=== PATIENT | male | born 1975 | race Caucasian/White ===

== ENCOUNTER 2017-01-20 00:19 | Emergency (ER) | payer MEDICARE, MEDICAID ==
[~2017-01-20] VITALS: Ht 190.5 cm; Wt 116.4 kg
[~2017-01-20 00:19] MED LIST: DIAZ5TAB PO; GABA600T PO; HYDR25TA11 PO; OXYC-229 PO; OXYM30TA8 PO; SERT50TA PO
[2017-01-20 00:20] VITALS: BP 133/85
[2017-01-20] MEDS ORDERED: MECLIZINE CHEWABLE 25 MG TAB ONE (02:11)
[2017-01-20] MEDS ORDERED: HYDROmorphone 1 MG/ML, 1ML ONE (02:11)
[2017-01-20] MEDS ORDERED: HYDROmorphone 1 MG/ML, 1ML IM ONE (02:30)
[2017-01-20] MEDS ORDERED: MECLIZINE CHEWABLE 25 MG TAB PO ONE (02:30)
== END 2017-01-20 03:18 | disposition home or self-care (01) ==
LOC: ED 02:31
DX: M54.2 Cervicalgia (principal); R42 Dizziness and giddiness; G89.29 Other chronic pain; J44.9 Chronic obstructive pulmonary disease, unspecified; E78.00 Pure hypercholesterolemia, unspecified; F17.200 Nicotine dependence, unspecified, uncomplicated; Z88.6 Allergy status to analgesic agent; Z88.8 Allergy status to other drugs, medicaments and biological substances
CPT/HCPCS: 72050; 96372; 99284; J1170

== ENCOUNTER 2017-04-09 09:13 | Emergency (ER) | payer MEDICARE, MEDICAID ==
[~2017-04-09] VITALS: Ht 190.5 cm; Wt 111.6 kg
[2017-04-09 09:16] VITALS: BP 159/97
[2017-04-09] MEDS ORDERED: HYDROmorphone 1 MG/ML, 1ML ONE (09:41)
[2017-04-09] MEDS ORDERED: HYDROmorphone 1 MG/ML, 1ML IM ONE (10:00)
== END 2017-04-09 10:30 | disposition home or self-care (01) ==
LOC: ED 10:16
DX: S83.91XA Sprain of unspecified site of right knee, initial encounter (principal); W01.0XXA Fall on same level from slipping, tripping and stumbling without subsequent striking against object, initial encounter; Y93.89 Activity, other specified; Y92.89 Other specified places as the place of occurrence of the external cause; Y99.8 Other external cause status
CPT/HCPCS: 73564; 96372; 99284; J1170

== ENCOUNTER 2017-05-06 22:26 | Emergency (ER) | payer MEDICARE, MEDICAID ==
[~2017-05-06] VITALS: Ht 190.5 cm; Wt 110.3 kg
[~2017-05-06 22:26] MED LIST changes: +OXCA150T PO
[2017-05-06 22:28] VITALS: BP 162/98
[2017-05-07] MEDS ORDERED: OXYC-229 PO (09:11)
== END 2017-05-07 | disposition left against medical advice (07) ==
LOC: ED 23:43
DX: R42 Dizziness and giddiness (principal); R51 Headache; M54.9 Dorsalgia, unspecified; Z53.21 Procedure and treatment not carried out due to patient leaving prior to being seen by health care provider

== ENCOUNTER 2017-05-19 09:49 | Emergency (ER) | payer MEDICARE, MEDICAID ==
[~2017-05-19] VITALS: Ht 188 cm; Wt 113.5 kg
[~2017-05-19 09:49] MED LIST changes: -OXYC-229 PO; +OXYC-307 PO
[2017-05-19 09:50] VITALS: BP 150/95
[2017-05-19] MEDS ORDERED: DIAZEPAM 5 MG TABLET ONE (10:28)
[2017-05-19] MEDS ORDERED: OXYcodone/APAP 10/325MG TABLET ONE (10:29)
[2017-05-19] MEDS ORDERED: DIAZEPAM 5 MG TABLET PO ONE (10:30)
[2017-05-19] MEDS ORDERED: OXYcodone/APAP 10/325MG TABLET PO ONE (10:30)
== END 2017-05-19 11:29 | disposition home or self-care (01) ==
LOC: ED 09:57
DX: M48.02 Spinal stenosis, cervical region (principal); F32.9 Major depressive disorder, single episode, unspecified; F17.210 Nicotine dependence, cigarettes, uncomplicated; M54.12 Radiculopathy, cervical region
CPT/HCPCS: 72050; 99283

== ENCOUNTER 2017-06-05 08:06 | Emergency (ER) | payer MEDICARE, MEDICAID ==
[~2017-06-05] VITALS: Ht 188 cm; Wt 111.6 kg
[2017-06-05 08:08] VITALS: BP 149/93
== END 2017-06-05 08:53 | disposition home or self-care (01) ==
LOC: ED 08:46
DX: K02.9 Dental caries, unspecified (principal); J44.9 Chronic obstructive pulmonary disease, unspecified; I10 Essential (primary) hypertension; E78.00 Pure hypercholesterolemia, unspecified; F17.210 Nicotine dependence, cigarettes, uncomplicated; F32.9 Major depressive disorder, single episode, unspecified; F43.10 Post-traumatic stress disorder, unspecified; G89.29 Other chronic pain; M54.9 Dorsalgia, unspecified
CPT/HCPCS: 99283

== ENCOUNTER 2017-09-15 18:35 | Emergency (ER) | payer MEDICARE, MEDICAID ==
[~2017-09-15] VITALS: Ht 190.5 cm; Wt 113.6 kg
[2017-09-15 18:37] VITALS: BP 147/102
[2017-09-15] MEDS ORDERED: HYDROcodone/APAP 5/325 TABLET PO ONE (19:30)
[2017-09-15] MEDS ORDERED: HYDROcodone/APAP 5/325 TABLET ONE (19:52)
[2017-09-15] MEDS ORDERED: KETOROLAC 30 MG/1 ML ONE (19:52)
[2017-09-15] MEDS: KETOROLAC 30 MG/1 ML IM ONE ×2 (19:53→19:55)
== END 2017-09-15 20:25 | disposition home or self-care (01) ==
LOC: ED 20:10
DX: S46.012A Strain of muscle(s) and tendon(s) of the rotator cuff of left shoulder, initial encounter (principal); G89.11 Acute pain due to trauma; E78.00 Pure hypercholesterolemia, unspecified; I10 Essential (primary) hypertension; J44.9 Chronic obstructive pulmonary disease, unspecified; F43.10 Post-traumatic stress disorder, unspecified; G62.9 Polyneuropathy, unspecified; G89.29 Other chronic pain; X58.XXXA Exposure to other specified factors, initial encounter; Y93.89 Activity, other specified; Y92.89 Other specified places as the place of occurrence of the external cause; Y99.8 Other external cause status
CPT/HCPCS: 99284; J1885

== ENCOUNTER 2017-09-23 00:40 | Emergency (ER) | payer MEDICARE, MEDICAID ==
[~2017-09-23] VITALS: Ht 193 cm; Wt 118.0 kg
[2017-09-23] MEDS ORDERED: OXYcodone/APAP 10/325MG TABLET ONE (02:52)
[2017-09-23] MEDS ORDERED: OXYcodone/APAP 10/325MG TABLET PO ONE (03:00)
[2017-09-23 03:22] VITALS: BP 149/88
== END 2017-09-23 03:24 | disposition home or self-care (01) ==
LOC: ED 03:18
DX: S44.02XA Injury of ulnar nerve at upper arm level, left arm, initial encounter (principal); Z88.8 Allergy status to other drugs, medicaments and biological substances; X58.XXXA Exposure to other specified factors, initial encounter; Y93.9 Activity, unspecified; Y92.098 Other place in other non-institutional residence as the place of occurrence of the external cause; Y99.8 Other external cause status
CPT/HCPCS: 99282

== ENCOUNTER → 2017-09-29 | Outpatient (CLI) | payer MEDICARE, MEDICAID ==
[~2017-09-29] MED LIST changes: +FENTANYL PF 100 MCG/2ML ONE; +FLUMAZENIL 0.1 MG/1 ML, 5ML ONE; +MIDAZOLAM 1 MG/ML, 5ML ONE; +NALOXONE 1 MG/ML, 2ML ONE
== END ==
LOC: RAD 06:51
PROVIDERS: ATTEND Physician Assistant
DX: M62.512 Muscle wasting and atrophy, not elsewhere classified, left shoulder (principal)
CPT/HCPCS: 73221; 99156; J2250; J3010; J2310

== ENCOUNTER 2017-11-21 13:11 | Emergency (ER) | payer MEDICARE, MEDICAID ==
[~2017-11-21] VITALS: Ht 190.5 cm; Wt 117.1 kg
[~2017-11-21 13:11] MED LIST changes: +ALBU18HF INH; -FENTANYL PF 100 MCG/2ML ONE; -FLUMAZENIL 0.1 MG/1 ML, 5ML ONE; -MIDAZOLAM 1 MG/ML, 5ML ONE; +MORP-52 PO; -NALOXONE 1 MG/ML, 2ML ONE
[2017-11-21 13:14] VITALS: BP 161/99
[2017-11-21] MEDS ORDERED: SILVER SULF. CRM 1% , 25GM TP ONE (14:00)
[2017-11-21] MEDS ORDERED: SILVER SULF. CRM 1% , 25GM ONE (14:20)
[2017-11-21] MEDS ORDERED: HYDROcodone/APAP 5/325 TABLET ONE (14:21)
[2017-11-21] MEDS ORDERED: DIPH,PERTUSS(ACELL),TET VAC/PF 0.5 ML IM-VACC ONE ×2 (14:21→14:30)
[2017-11-21] MEDS ORDERED: OXYcodone/APAP 5/325MG TABLET PO ONE (14:30)
[2017-11-21] MEDS ORDERED: HYDROcodone/APAP 5/325 TABLET PO ONE (15:00)
== END 2017-11-21 15:10 | disposition home or self-care (01) ==
LOC: ED 14:50
DX: T23.102A Burn of first degree of left hand, unspecified site, initial encounter (principal); S16.1XXA Strain of muscle, fascia and tendon at neck level, initial encounter; T31.0 Burns involving less than 10% of body surface; I10 Essential (primary) hypertension; J44.9 Chronic obstructive pulmonary disease, unspecified; E78.00 Pure hypercholesterolemia, unspecified; G62.9 Polyneuropathy, unspecified; G89.29 Other chronic pain; F43.10 Post-traumatic stress disorder, unspecified; F17.210 Nicotine dependence, cigarettes, uncomplicated; X58.XXXA Exposure to other specified factors, initial encounter; Y93.89 Activity, other specified; Y92.89 Other specified places as the place of occurrence of the external cause; Y99.8 Other external cause status
CPT/HCPCS: 16000; 90471; 90715

== ENCOUNTER 2017-11-27 15:42 | Emergency (ER) | payer MEDICARE, MEDICAID ==
[~2017-11-27] VITALS: Ht 190.5 cm; Wt 110.0 kg
[2017-11-27] MEDS ORDERED: NITROGLYCERIN SINGLE TAB 0.4 MG SL PRN (16:30)
[2017-11-27] MEDS ORDERED: ASPIRIN 81 MG TABLET CHEW PO ONE (16:30)
[2017-11-27] MEDS ORDERED: SODIUM CHLORIDE FLUSH 10ML SYR IVF ONE (16:30)
[2017-11-27] MEDS ORDERED: ONDANSETRON 2MG/ML, 2ML IVPush ONE (16:30)
[2017-11-27] MEDS ORDERED: ONDANSETRON 2MG/ML, 2ML ONE (16:45)
[2017-11-27] MEDS ORDERED: NITROGLYCERIN SINGLE TAB 0.4 MG SL ONE (16:46)
[2017-11-27] MEDS ORDERED: ASPIRIN 81 MG TABLET CHEW ONE (16:46)
[2017-11-27 16:47] LABS: BASOPHILS # (AUTO) 0.06 x10^3/uL (0-0.1); BASOPHILS % (AUTO) 1 % (0-1); EOSINOPHILS # (AUTO) 0.35 x10^3/uL (0-0.4); EOSINOPHILS % (AUTO) 4 % (1-7); LYMPHOCYTES # (AUTO) 2.88 x10^3/uL (1-3.4); LYMPHOCYTES % (AUTO) 31 % (22-44); MD NO; MEAN CORPUSCULAR HEMOGLOBIN 31.6 pg (27.5-34.5); MEAN CORPUSCULAR HGB CONC 34.9 g/dL (33.2-36.2); MEAN CORPUSCULAR VOLUME 90.7 fL (81-97); MEAN PLATELET VOLUME 7.8 fL (7.4-10.4); MONOCYTES # (AUTO) 0.56 x10^3/uL (0.2-0.8); MONOCYTES % (AUTO) 6 % (2-9); NEUTROPHILS # (AUTO) 5.35 x10^3/uL (1.8-6.8); NEUTROPHILS % (AUTO) 58 % (42-75); PLATELET COUNT 386 x10^3/uL (130-400)
[2017-11-27 16:58] LABS: ALBUMIN 3.7 g/dL (3.4-5.0); CALCIUM 8.6 mg/dL (8.5-10.1); CHLORIDE 105 mmol/L (98-107); CREATININE 1.11 mg/dL (0.7-1.3)
[2017-11-27 17:02] LABS: ALKALINE PHOSPHATASE 57 U/L (45-117); BILIRUBIN,TOTAL 0.3 mg/dL (0.2-1.0); TROPONIN I < 0.015 ng/mL (0.000-0.045)
[2017-11-27 17:20] LABS: ANION GAP 6 mmol/L (5-15)
[2017-11-27 17:23] LABS: ALANINE AMINOTRANSFERASE 28 U/L (12-78); TOTAL PROTEIN 7.1 g/dL (6.4-8.2)
[2017-11-27 17:39] VITALS: BP 111/70
== END 2017-11-27 19:06 | disposition home or self-care (01) ==
LOC: ED 17:49
DX: R07.89 Other chest pain (principal); J44.9 Chronic obstructive pulmonary disease, unspecified; E78.00 Pure hypercholesterolemia, unspecified; F43.10 Post-traumatic stress disorder, unspecified; Z88.8 Allergy status to other drugs, medicaments and biological substances
CPT/HCPCS: 36415; 71045; 80053; 84484; 85025; 93005; 96374; 99285; J2405

== ENCOUNTER 2017-12-10 17:21 | Emergency (ER) | payer MEDICARE, MEDICAID ==
[~2017-12-10] VITALS: Ht 190.5 cm; Wt 119.5 kg
[2017-12-10] MEDS ORDERED: DEXAMETHASONE 4 MG/ML, 5ML ONE (18:11)
[2017-12-10] MEDS ORDERED: KETAMINE 100 MG/ML, 5ML ONE (18:22)
[2017-12-10] MEDS ORDERED: SODIUM CHLORIDE FLUSH 10ML SYR IVF ONE (18:30)
[2017-12-10] MEDS ORDERED: KETAMINE 100 MG/ML, 5ML IV ONE (18:30)
[2017-12-10] MEDS ORDERED: DEXAMETHASONE 4 MG/ML, 1ML IVPush ONE (18:30)
[2017-12-10 19:26] VITALS: BP 134/80
== END 2017-12-10 19:29 | disposition home or self-care (01) ==
LOC: ED 18:48
DX: M54.41 Lumbago with sciatica, right side (principal); J44.9 Chronic obstructive pulmonary disease, unspecified; E78.00 Pure hypercholesterolemia, unspecified; F43.10 Post-traumatic stress disorder, unspecified; I10 Essential (primary) hypertension
CPT/HCPCS: 96374; 96375; 99284; J1100

== ENCOUNTER → 2018-01-10 | Outpatient (CLI) | payer MEDICARE, MEDICAID | LOC: CFH 11:57 | PROVIDERS: ATTEND Orthopaedic Surgery | DX: M48.02 Spinal stenosis, cervical region (principal) | CPT/HCPCS: 72141 ==

== ENCOUNTER → 2018-02-08 | Outpatient (CLI) | payer MEDICARE, MEDICAID ==
[~2018-02-08] MED LIST changes: +OMNIPAQUE 350 MG/ML, 75ML BOTTLE ONE
== END | disposition home or self-care (01) ==
LOC: CFH 08:45
PROVIDERS: ATTEND Family Medicine
DX: R91.1 Solitary pulmonary nodule (principal); J43.8 Other emphysema; F17.200 Nicotine dependence, unspecified, uncomplicated
CPT/HCPCS: 71260; Q9967

== ENCOUNTER → 2018-02-09 | Outpatient (CLI) | payer MEDICARE, MEDICAID ==
[~2018-02-09] MED LIST changes: +FENTANYL PF 100 MCG/2ML ONE; +MIDAZOLAM 1 MG/ML, 5ML ONE; -OMNIPAQUE 350 MG/ML, 75ML BOTTLE ONE
== END | disposition home or self-care (01) ==
LOC: RAD 08:06
PROVIDERS: ATTEND Physical Medicine & Rehabilitation Pain Medicine
DX: M51.27 Other intervertebral disc displacement, lumbosacral region (principal); M47.816 Spondylosis without myelopathy or radiculopathy, lumbar region
CPT/HCPCS: 70551; 72148; 99156; 99157; J2250; J3010

== ENCOUNTER 2018-03-03 09:31 | Emergency (ER) | payer MEDICARE, MEDICAID ==
[~2018-03-03] VITALS: Ht 190.5 cm; Wt 118.0 kg
[~2018-03-03 09:31] MED LIST changes: -FENTANYL PF 100 MCG/2ML ONE; -MIDAZOLAM 1 MG/ML, 5ML ONE
[2018-03-03 09:33] VITALS: BP 156/90
[2018-03-03] MEDS ORDERED: ONDANSETRON ODT 4 MG PO ONE (10:30)
[2018-03-03] MEDS ORDERED: HYDROmorphone 1 MG/ML, 1ML IV ONE (10:30)
[2018-03-03] MEDS ORDERED: HYDROmorphone 2 MG/ML, 1ML ONE (10:37)
[2018-03-03] MEDS ORDERED: ONDANSETRON ODT 4 MG ONE (10:37)
[2018-03-03] MEDS ORDERED: HYDROmorphone 2 MG/ML, 1ML IM ONE (11:00)
== END 2018-03-03 11:28 | disposition home or self-care (01) ==
LOC: ED 11:10
DX: S16.1XXA Strain of muscle, fascia and tendon at neck level, initial encounter (principal); I10 Essential (primary) hypertension; J44.9 Chronic obstructive pulmonary disease, unspecified; F17.200 Nicotine dependence, unspecified, uncomplicated; W01.0XXA Fall on same level from slipping, tripping and stumbling without subsequent striking against object, initial encounter; Y93.89 Activity, other specified; Y92.099 Unspecified place in other non-institutional residence as the place of occurrence of the external cause; Y99.8 Other external cause status
CPT/HCPCS: 72050; 73030; 96372; 99284; J1170; Q0162

== ENCOUNTER 2018-05-15 14:44 | Emergency (ER) | payer MEDICARE, MEDICAID ==
[~2018-05-15] VITALS: Ht 190.5 cm; Wt 118.0 kg
[~2018-05-15 14:44] MED LIST changes: +OXYC15TA PO
[2018-05-15 15:01] VITALS: BP 156/98
[2018-05-15] MEDS ORDERED: HYDROcodone/APAP 10/325 MG TABLET PO ONE (15:30)
[2018-05-15] MEDS ORDERED: HYDROcodone/APAP 10/325 MG TABLET ONE (16:01)
== END 2018-05-15 17:10 | disposition home or self-care (01) ==
LOC: ED 16:05
DX: G89.11 Acute pain due to trauma (principal); R51 Headache; J44.9 Chronic obstructive pulmonary disease, unspecified; F17.210 Nicotine dependence, cigarettes, uncomplicated; W01.0XXA Fall on same level from slipping, tripping and stumbling without subsequent striking against object, initial encounter; Y93.89 Activity, other specified; Y92.89 Other specified places as the place of occurrence of the external cause; Y99.8 Other external cause status
CPT/HCPCS: 70486; 99284

== ENCOUNTER 2018-06-13 06:43 | Emergency (ER) | payer MEDICARE, MEDICAID ==
[~2018-06-13] VITALS: Ht 188 cm; Wt 118.0 kg
[~2018-06-13 06:43] MED LIST changes: -OXCA150T PO; +OXCA150T18 PO
[2018-06-13] MEDS ORDERED: DEXAMETHASONE 4 MG/ML, 1ML ONE (07:26)
[2018-06-13] MEDS ORDERED: DIAZEPAM 5 MG TABLET ONE (07:27)
[2018-06-13] MEDS ORDERED: HYDROmorphone 2 MG/ML, 1ML ONE (07:27)
[2018-06-13] MEDS ORDERED: DEXAMETHASONE 4 MG/ML, 1ML IM ONE (07:30)
[2018-06-13] MEDS ORDERED: HYDROmorphone 1 MG/ML, 1ML IM ONE (07:30)
[2018-06-13] MEDS ORDERED: DIAZEPAM 5 MG TABLET PO ONE (07:30)
[2018-06-13] MEDS ORDERED: DIAZEPAM 5 MG/ML, 2ML IM ONE (07:30)
[2018-06-13 07:58] VITALS: BP 151/89
== END 2018-06-13 10:11 | disposition home or self-care (01) ==
LOC: ED 08:05
DX: S16.1XXA Strain of muscle, fascia and tendon at neck level, initial encounter (principal); E78.00 Pure hypercholesterolemia, unspecified; J44.9 Chronic obstructive pulmonary disease, unspecified; M54.9 Dorsalgia, unspecified; G89.29 Other chronic pain; X58.XXXA Exposure to other specified factors, initial encounter; Y93.89 Activity, other specified; Y99.8 Other external cause status; Y92.89 Other specified places as the place of occurrence of the external cause
CPT/HCPCS: 96372; 99284; J1100; J1170

== ENCOUNTER 2018-06-14 15:01 | Emergency (ER) | payer MEDICARE, MEDICAID ==
[~2018-06-14] VITALS: Ht 188 cm; Wt 130.0 kg
[2018-06-14] MEDS ORDERED: SODIUM CHLORIDE FLUSH 10ML SYR IVF ONE (15:30)
[2018-06-14 15:39] LABS: BASOPHILS # (AUTO) 0.12 x10^3/uL (0-0.1); BASOPHILS % (AUTO) 1 % (0-1); EOSINOPHILS # (AUTO) 0.09 x10^3/uL (0-0.4); EOSINOPHILS % (AUTO) 1 % (1-7); LYMPHOCYTES # (AUTO) 3.76 x10^3/uL (1-3.4); LYMPHOCYTES % (AUTO) 25 % (22-44); MD NO; MEAN CORPUSCULAR HEMOGLOBIN 31.1 pg (27.5-34.5); MEAN CORPUSCULAR HGB CONC 33.5 g/dL (33.2-36.2); MEAN CORPUSCULAR VOLUME 92.8 fL (81-97); MEAN PLATELET VOLUME 8.6 fL (7.4-10.4); MONOCYTES # (AUTO) 0.84 x10^3/uL (0.2-0.8); MONOCYTES % (AUTO) 6 % (2-9); NEUTROPHILS # (AUTO) 10.46 x10^3/uL (1.8-6.8); NEUTROPHILS % (AUTO) 69 % (42-75); PLATELET COUNT 352 x10^3/uL (130-400); RED BLOOD COUNT 4.84 x10^6/uL (4.38-5.82); RED CELL DISTRIBUTION WIDTH 13.2 % (9.4-14.8)
[2018-06-14 15:47] LABS: INTERNATIONAL NORMALIZED RATIO 0.94 (0.93-1.1); PROTHROMBIN TIME 9.8 Seconds (9.6-11.5)
[2018-06-14 15:51] LABS: ALBUMIN 3.9 g/dL (3.4-5.0); ANION GAP 9 mmol/L (5-15); CALCIUM 8.8 mg/dL (8.5-10.1); CHLORIDE 109 mmol/L (98-107)
[2018-06-14 15:55] LABS: ALANINE AMINOTRANSFERASE 31 U/L (12-78); ALKALINE PHOSPHATASE 63 U/L (45-117); BILIRUBIN,TOTAL 0.2 mg/dL (0.2-1.0); CREATININE 1.11 mg/dL (0.7-1.3); SALICYLATE LEVEL 5.2 mg/dL (2.8-20.0); TOTAL PROTEIN 7.8 g/dL (6.4-8.2)
[2018-06-14 15:56] LABS: ACETAMINOPHEN < 2 mcg/mL (10-30)
[2018-06-14 17:19] VITALS: BP 108/70
== END 2018-06-14 17:23 | disposition home or self-care (01) ==
LOC: ED 17:19
DX: M54.12 Radiculopathy, cervical region (principal); R79.1 Abnormal coagulation profile; I10 Essential (primary) hypertension; J44.9 Chronic obstructive pulmonary disease, unspecified; F43.10 Post-traumatic stress disorder, unspecified; Z79.899 Other long term (current) drug therapy
CPT/HCPCS: 36415; 70450; 72125; 80053; 80307; 80329; 85025; 85610; 85730; 93005; 99285; G0480

== ENCOUNTER 2018-06-26 09:16 | Emergency (ER) | payer MEDICARE, MEDICAID ==
[~2018-06-26] VITALS: Ht 182.9 cm; Wt 120.0 kg
[2018-06-26 09:28] VITALS: BP 158/96
[2018-06-26] MEDS ORDERED: ACETAMINOPHEN 500 MG TABLET ONE (09:54)
[2018-06-26] MEDS ORDERED: ACETAMINOPHEN 500 MG TABLET PO ONE (10:00)
== END 2018-06-26 10:32 | disposition home or self-care (01) ==
LOC: ED 10:23
DX: S43.402A Unspecified sprain of left shoulder joint, initial encounter (principal); S63.522A Sprain of radiocarpal joint of left wrist, initial encounter; W18.30XA Fall on same level, unspecified, initial encounter; Y93.89 Activity, other specified; Y99.8 Other external cause status; Y92.009 Unspecified place in unspecified non-institutional (private) residence as the place of occurrence of the external cause
CPT/HCPCS: 99284

== ENCOUNTER 2018-09-01 19:02 | Emergency (ER) | payer MEDICARE, MEDICAID ==
[~2018-09-01] VITALS: Ht 188 cm; Wt 119.1 kg
[2018-09-01 19:51] LABS: BASOPHILS # (AUTO) 0.07 x10^3/uL (0-0.1); BASOPHILS % (AUTO) 1 % (0-1); EOSINOPHILS # (AUTO) 0.39 x10^3/uL (0-0.4); EOSINOPHILS % (AUTO) 4 % (1-7); LYMPHOCYTES # (AUTO) 2.89 x10^3/uL (1-3.4); LYMPHOCYTES % (AUTO) 28 % (22-44); MD NO; MEAN CORPUSCULAR HEMOGLOBIN 31.5 pg (27.5-34.5); MEAN CORPUSCULAR HGB CONC 34.3 g/dL (33.2-36.2); MEAN CORPUSCULAR VOLUME 91.8 fL (81-97); MEAN PLATELET VOLUME 8.4 fL (7.4-10.4); MONOCYTES # (AUTO) 0.71 x10^3/uL (0.2-0.8); MONOCYTES % (AUTO) 7 % (2-9); NEUTROPHILS # (AUTO) 6.37 x10^3/uL (1.8-6.8); NEUTROPHILS % (AUTO) 61 % (42-75); PLATELET COUNT 297 x10^3/uL (130-400); RED CELL DISTRIBUTION WIDTH 13.8 % (9.4-14.8)
[2018-09-01] MEDS ORDERED: MORPHINE SULFATE 4 MG/ML, 1ML IVPush PRN (20:00)
[2018-09-01 20:03] LABS: ALBUMIN 3.7 g/dL (3.4-5.0); ANION GAP 10 mmol/L (5-15); CALCIUM 9.1 mg/dL (8.5-10.1); CHLORIDE 108 mmol/L (98-107); CREATININE 1.02 mg/dL (0.7-1.3)
[2018-09-01 20:07] LABS: TROPONIN I < 0.015 ng/mL (0.000-0.045)
[2018-09-01] MEDS ORDERED: HYDROmorphone 2 MG/ML, 1ML ONE (20:13)
[2018-09-01] MEDS ORDERED: HYDROmorphone 2 MG/ML, 1ML IM ONE (20:30)
[2018-09-01 20:40] VITALS: BP 116/57
== END 2018-09-01 21:35 | disposition home or self-care (01) ==
LOC: ED 19:31
DX: R07.2 Precordial pain (principal); J44.9 Chronic obstructive pulmonary disease, unspecified; M54.9 Dorsalgia, unspecified; G89.29 Other chronic pain; I10 Essential (primary) hypertension; E11.9 Type 2 diabetes mellitus without complications; F32.9 Major depressive disorder, single episode, unspecified; F43.10 Post-traumatic stress disorder, unspecified; F17.200 Nicotine dependence, unspecified, uncomplicated
CPT/HCPCS: 36415; 71045; 80048; 82040; 84484; 85025; 93005; 96372; 99284; J1170

== ENCOUNTER 2018-10-06 15:25 | Emergency (ER) | payer MEDICARE, MEDICAID ==
[~2018-10-06] VITALS: Ht 190.5 cm; Wt 118.3 kg
[2018-10-06 15:33] VITALS: BP 130/84
[2018-10-06] MEDS ORDERED: HYDROmorphone 2 MG/ML, 1ML ONE (15:57)
[2018-10-06] MEDS ORDERED: HYDROmorphone 1 MG/ML, 1ML IM ONE (16:00)
[2018-10-06] MEDS ORDERED: METHOCARBAMOL 750 MG TABLET ONE (16:54)
[2018-10-06] MEDS ORDERED: METHOCARBAMOL 750 MG TABLET PO ONE (17:00)
--- NOTE | 2018-10-06 17:14 | NUR ---
Patient/Caregiver given discharge instructions and they have confirmed that they understand the instructions. Patient ambulatory with steady gait. PT LEFT WITH ALL PERSONAL BELONGINGS.
== END 2018-10-06 17:15 | disposition home or self-care (01) ==
LOC: ED 17:13
DX: S40.012A Contusion of left shoulder, initial encounter (principal); S20.212A Contusion of left front wall of thorax, initial encounter; S40.022A Contusion of left upper arm, initial encounter; M54.2 Cervicalgia; I10 Essential (primary) hypertension; E11.9 Type 2 diabetes mellitus without complications; J44.9 Chronic obstructive pulmonary disease, unspecified; E78.00 Pure hypercholesterolemia, unspecified; F32.9 Major depressive disorder, single episode, unspecified; F17.200 Nicotine dependence, unspecified, uncomplicated; W01.0XXA Fall on same level from slipping, tripping and stumbling without subsequent striking against object, initial encounter; Y93.89 Activity, other specified; Y92.410 Unspecified street and highway as the place of occurrence of the external cause; Y99.8 Other external cause status
CPT/HCPCS: 71046; 72050; 73030; 73060; 93005; 96372; 99283; J1170

== ENCOUNTER 2018-10-20 18:40 | Emergency (ER) | payer MEDICARE, MEDICAID ==
[~2018-10-20] VITALS: Ht 190.5 cm; Wt 118.6 kg
[2018-10-20 18:51] VITALS: BP 169/107
[2018-10-20] MEDS ORDERED: HYDROmorphone 1 MG/ML, 1ML ONE (20:01)
[2018-10-20] MEDS ORDERED: HYDROmorphone 1 MG/ML, 1ML IM ONE (20:30)
== END 2018-10-20 21:08 | disposition home or self-care (01) ==
LOC: ED 20:23
DX: G89.29 Other chronic pain (principal); M25.512 Pain in left shoulder; J44.9 Chronic obstructive pulmonary disease, unspecified; E11.9 Type 2 diabetes mellitus without complications; I10 Essential (primary) hypertension; F43.10 Post-traumatic stress disorder, unspecified; F41.1 Generalized anxiety disorder
CPT/HCPCS: 73030; 96372; 99283; J1170

== ENCOUNTER 2018-11-03 22:08 | Emergency (ER) | payer MEDICARE, MEDICAID ==
[~2018-11-03] VITALS: Ht 182.9 cm; Wt 90.0 kg
[2018-11-03 22:13] VITALS: BP 166/102
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
--- NOTE | 2018-11-03 22:51 | NUR ---
PT OFFERED TESTING BY . PT REFUSED. EDUCATED BY , STILL REFUSING. TBDC.
== END 2018-11-03 23:11 | disposition home or self-care (01) ==
LOC: ED 23:05
DX: R41.82 Altered mental status, unspecified (principal); G89.4 Chronic pain syndrome; I10 Essential (primary) hypertension; E11.9 Type 2 diabetes mellitus without complications; F41.1 Generalized anxiety disorder; J44.9 Chronic obstructive pulmonary disease, unspecified; F32.9 Major depressive disorder, single episode, unspecified
CPT/HCPCS: 99283

== ENCOUNTER 2018-11-14 00:52 | Emergency (ER) | payer MEDICARE, MEDICAID ==
[~2018-11-14] VITALS: Ht 188 cm; Wt 115.0 kg
[2018-11-14 00:59] VITALS: BP 163/94
[2018-11-14] MEDS ORDERED: LORazepam 1MG TABLET ONE (01:11)
--- NOTE | 2018-11-14 01:20 | NUR ---
DC EDUCATION PROVIDED, PT DEMONSTRATES UNDERSTANDING. PT AMBULATED STEADILY TO DC WITH RN. SO TO TRANSPORT PT HOME.
[2018-11-14] MEDS ORDERED: LORazepam 1MG TABLET PO ONE (01:30)
== END 2018-11-14 01:22 | disposition home or self-care (01) ==
LOC: ED 01:05
DX: F41.1 Generalized anxiety disorder (principal); E11.9 Type 2 diabetes mellitus without complications; I10 Essential (primary) hypertension; F43.10 Post-traumatic stress disorder, unspecified
CPT/HCPCS: 99284

== ENCOUNTER 2018-12-14 14:13 | Emergency (ER) | payer MEDICARE, MEDICAID ==
[~2018-12-14] VITALS: Ht 188 cm; Wt 115.4 kg
[2018-12-14 14:16] VITALS: BP 130/97
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
== END 2018-12-14 15:16 | disposition home or self-care (01) ==
LOC: ED 15:10
DX: G89.11 Acute pain due to trauma (principal); M25.552 Pain in left hip; M25.562 Pain in left knee; I10 Essential (primary) hypertension; E11.9 Type 2 diabetes mellitus without complications; E78.00 Pure hypercholesterolemia, unspecified; J44.9 Chronic obstructive pulmonary disease, unspecified; F17.200 Nicotine dependence, unspecified, uncomplicated; W01.0XXA Fall on same level from slipping, tripping and stumbling without subsequent striking against object, initial encounter; Y93.89 Activity, other specified; Y92.89 Other specified places as the place of occurrence of the external cause; Y99.8 Other external cause status
CPT/HCPCS: 99283

== ENCOUNTER 2019-01-05 15:44 | Emergency (ER) | payer MEDICARE, MEDICAID ==
[~2019-01-05] VITALS: Ht 188 cm; Wt 114.2 kg
[2019-01-05 15:50] VITALS: BP 135/76
--- NOTE | 2019-01-05 16:19 | NUR ---
pt taken to radiology
[2019-01-05] MEDS ORDERED: HYDROcodone/APAP 10/325 MG TABLET PO ONE (16:44)
[2019-01-05] MEDS ORDERED: HYDROcodone/APAP 10/325 MG TABLET ONE (16:49)
== END 2019-01-05 17:05 | disposition home or self-care (01) ==
LOC: ED 16:57
DX: G89.11 Acute pain due to trauma (principal); M25.512 Pain in left shoulder; W01.0XXA Fall on same level from slipping, tripping and stumbling without subsequent striking against object, initial encounter; Y93.89 Activity, other specified; Y92.89 Other specified places as the place of occurrence of the external cause; Y99.8 Other external cause status
CPT/HCPCS: 99283

== ENCOUNTER 2019-01-08 17:31 | Emergency (ER) | payer MEDICARE, MEDICAID ==
[~2019-01-08] VITALS: Ht 188 cm; Wt 114.1 kg
[2019-01-08 17:41] VITALS: BP 155/98
[2019-01-08] MEDS ORDERED: SODIUM CHLORIDE FLUSH 10ML SYR IVF ONE (18:00)
[2019-01-08] MEDS ORDERED: GABA300C10 PO (18:04)
[2019-01-08 18:12] LABS: BASOPHILS # (AUTO) 0.12 x10^3/uL (0-0.1); BASOPHILS % (AUTO) 1 % (0-1); EOSINOPHILS # (AUTO) 0.42 x10^3/uL (0-0.4); EOSINOPHILS % (AUTO) 4 % (1-7); LYMPHOCYTES # (AUTO) 3.04 x10^3/uL (1-3.4); LYMPHOCYTES % (AUTO) 27 % (22-44); MD NO; MEAN CORPUSCULAR HEMOGLOBIN 31.4 pg (27.5-34.5); MEAN CORPUSCULAR HGB CONC 34.5 g/dL (33.2-36.2); MEAN PLATELET VOLUME 8.1 fL (7.4-10.4); MONOCYTES # (AUTO) 0.76 x10^3/uL (0.2-0.8); MONOCYTES % (AUTO) 7 % (2-9); NEUTROPHILS # (AUTO) 6.97 x10^3/uL (1.8-6.8); NEUTROPHILS % (AUTO) 62 % (42-75); PLATELET COUNT 352 x10^3/uL (130-400); RED BLOOD COUNT 5.11 x10^6/uL (4.38-5.82); RED CELL DISTRIBUTION WIDTH 13.1 % (9.4-14.8)
[2019-01-08] MEDS ORDERED: LORazepam 1MG TABLET ONE (18:16)
[2019-01-08 18:21] LABS: INTERNATIONAL NORMALIZED RATIO 0.95 (0.93-1.1)
[2019-01-08 18:23] LABS: ALANINE AMINOTRANSFERASE 31 U/L (12-78); ALBUMIN 3.9 g/dL (3.4-5.0); ANION GAP 6 mmol/L (5-15); CHLORIDE 107 mmol/L (98-107); CREATININE 1.01 mg/dL (0.7-1.3)
[2019-01-08 18:25] LABS: ALKALINE PHOSPHATASE 74 U/L (45-117); TOTAL PROTEIN 7.6 g/dL (6.4-8.2)
[2019-01-08 18:28] LABS: BILIRUBIN,TOTAL < 0.1 mg/dL (0.2-1.0)
[2019-01-08] MEDS ORDERED: LORazepam 1MG TABLET PO ONE (18:30)
--- NOTE | 2019-01-08 19:14 | NUR ---
RECEIVED BS REPORT FROM TOM VANEGAS TO ASSUME PT. CARE AT THIS TIME. PT. C/O "WAVES OF PAIN TO RIGHT ARM". STATES "THE ATIVAN HELPED IT QUIT SHAKING BUT I AM STILL HAVING WAVES OF PAIN. NADN. SKIN PWD. RESP EVEN, NON-LABORED. CALL LIGHT IN REACH. AWAITING CT RESULTS.
== END 2019-01-08 19:45 | disposition home or self-care (01) ==
LOC: ED 18:57
DX: S16.1XXA Strain of muscle, fascia and tendon at neck level, initial encounter (principal); G25.2 Other specified forms of tremor; I10 Essential (primary) hypertension; E11.9 Type 2 diabetes mellitus without complications; F41.1 Generalized anxiety disorder; J44.9 Chronic obstructive pulmonary disease, unspecified; E78.00 Pure hypercholesterolemia, unspecified; F17.200 Nicotine dependence, unspecified, uncomplicated; G89.29 Other chronic pain; F32.9 Major depressive disorder, single episode, unspecified; Z88.6 Allergy status to analgesic agent; Z88.5 Allergy status to narcotic agent; Z88.8 Allergy status to other drugs, medicaments and biological substances
CPT/HCPCS: 36415; 70450; 72125; 80053; 82962; 85025; 85610; 85730; 93005; 99284

== ENCOUNTER → 2019-01-23 | Outpatient (CLI) | payer MEDICARE, MEDICAID ==
[~2019-01-23] MED LIST changes: +GABA300C10 PO
== END | disposition home or self-care (01) ==
LOC: CFH 15:33
PROVIDERS: ATTEND Family Medicine
DX: K40.90 Unilateral inguinal hernia, without obstruction or gangrene, not specified as recurrent (principal); K59.00 Constipation, unspecified; R91.1 Solitary pulmonary nodule
CPT/HCPCS: 74176

== ENCOUNTER 2019-03-15 09:49 | Emergency (ER) | payer MEDICAID, MEDICARE ==
[~2019-03-15] VITALS: Ht 188 cm; Wt 112.9 kg
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
[2019-03-15] MEDS ORDERED: MAALOX/HYOSCYAMINE/LIDOCAINE 45 ML BTL PO ONE (10:30)
[2019-03-15 10:33] LABS: BASOPHILS # (AUTO) 0.04 x10^3/uL (0-0.1); BASOPHILS % (AUTO) 1 % (0-1); EOSINOPHILS # (AUTO) 0.33 x10^3/uL (0-0.4); EOSINOPHILS % (AUTO) 4 % (1-7); LYMPHOCYTES # (AUTO) 2.65 x10^3/uL (1-3.4); LYMPHOCYTES % (AUTO) 31 % (22-44); MD NO; MEAN CORPUSCULAR HEMOGLOBIN 30.8 pg (27.5-34.5); MEAN CORPUSCULAR HGB CONC 33.2 g/dL (33.2-36.2); MEAN CORPUSCULAR VOLUME 92.9 fL (81-97); MEAN PLATELET VOLUME 7.9 fL (7.4-10.4); MONOCYTES # (AUTO) 0.54 x10^3/uL (0.2-0.8); MONOCYTES % (AUTO) 6 % (2-9); NEUTROPHILS # (AUTO) 5.05 x10^3/uL (1.8-6.8); NEUTROPHILS % (AUTO) 59 % (42-75); PLATELET COUNT 400 x10^3/uL (130-400); RED BLOOD COUNT 5.09 x10^6/uL (4.38-5.82); RED CELL DISTRIBUTION WIDTH 14.1 % (9.4-14.8)
[2019-03-15 10:42] LABS: ALANINE AMINOTRANSFERASE 23 U/L (12-78); ALBUMIN 4.1 g/dL (3.4-5.0); ANION GAP 7 mmol/L (5-15); CALCIUM 9.2 mg/dL (8.5-10.1); CHLORIDE 107 mmol/L (98-107); CREATININE 0.98 mg/dL (0.7-1.3)
--- NOTE | 2019-03-15 10:43 | NUR ---
PT TO RESTROOM FOR UA SPECIMEN.
[2019-03-15 10:45] LABS: ALKALINE PHOSPHATASE 64 U/L (45-117); BILIRUBIN,TOTAL 0.3 mg/dL (0.2-1.0); TOTAL PROTEIN 7.8 g/dL (6.4-8.2)
[2019-03-15] MEDS ORDERED: MAALOX/HYOSCYAMINE/LIDOCAINE 45 ML BTL ONE (10:47)
[2019-03-15 11:09] LABS: MICROSCOPIC NOT IND
[2019-03-15 11:16] LABS: CULTURE INDICATED? NO
[2019-03-15 11:20] VITALS: BP 131/87
== END 2019-03-15 11:37 | disposition home or self-care (01) ==
LOC: ED 10:56
DX: K29.00 Acute gastritis without bleeding (principal); J44.9 Chronic obstructive pulmonary disease, unspecified; I10 Essential (primary) hypertension; E11.9 Type 2 diabetes mellitus without complications; F43.10 Post-traumatic stress disorder, unspecified; F17.200 Nicotine dependence, unspecified, uncomplicated
CPT/HCPCS: 36415; 74022; 80053; 81003; 83690; 85025; 93005; 99284

== ENCOUNTER 2019-04-16 22:02 | Emergency (ER) | payer MEDICARE, MEDICAID ==
[~2019-04-16] VITALS: Ht 188 cm; Wt 119.2 kg
[2019-04-16 22:05] VITALS: BP 149/76
== END 2019-04-16 23:31 | disposition home or self-care (01) ==
LOC: ED 22:35
DX: S16.1XXA Strain of muscle, fascia and tendon at neck level, initial encounter (principal); M54.12 Radiculopathy, cervical region; J34.9 Unspecified disorder of nose and nasal sinuses; E11.9 Type 2 diabetes mellitus without complications; I10 Essential (primary) hypertension; F32.9 Major depressive disorder, single episode, unspecified; F41.1 Generalized anxiety disorder; E78.00 Pure hypercholesterolemia, unspecified; F43.10 Post-traumatic stress disorder, unspecified; X58.XXXA Exposure to other specified factors, initial encounter; Y93.39 Activity, other involving climbing, rappelling and jumping off; Y92.89 Other specified places as the place of occurrence of the external cause; Y99.8 Other external cause status
CPT/HCPCS: 72020; 72050; 99284

== ENCOUNTER 2019-05-08 00:16 | Emergency (ER) | payer MEDICAID, MEDICARE ==
[~2019-05-08] VITALS: Ht 188 cm; Wt 119.0 kg
[2019-05-08 02:13] VITALS: BP 121/77
== END 2019-05-08 02:15 | disposition home or self-care (01) ==
LOC: ED 01:08
DX: R07.89 Other chest pain (principal); F41.1 Generalized anxiety disorder; E11.9 Type 2 diabetes mellitus without complications; I10 Essential (primary) hypertension; J44.9 Chronic obstructive pulmonary disease, unspecified; G89.29 Other chronic pain; M54.2 Cervicalgia; M25.519 Pain in unspecified shoulder; F17.200 Nicotine dependence, unspecified, uncomplicated; F43.10 Post-traumatic stress disorder, unspecified
CPT/HCPCS: 36415; 71045; 80053; 84484; 85025; 93005; 99284

== ENCOUNTER 2019-07-26 20:33 | Emergency (ER) | payer MEDICARE, MEDICAID ==
[~2019-07-26] VITALS: Ht 190.5 cm; Wt 116.8 kg
[~2019-07-26 20:33] MED LIST changes: +HYDR-826 PO; -HYDR25TA11 PO; +VERA40TA PO
[2019-07-26 20:38] VITALS: BP 148/92
[2019-07-26] MEDS ORDERED: OXYcodone IR 5MG TABLET ONE (21:44)
[2019-07-26] MEDS ORDERED: OXYcodone 5 MG/5 ML ORAL.SOL UDC PO ONE (22:00)
== END 2019-07-26 21:52 | disposition home or self-care (01) ==
LOC: ED 21:45
DX: G89.11 Acute pain due to trauma (principal); M25.511 Pain in right shoulder; F17.210 Nicotine dependence, cigarettes, uncomplicated; W01.0XXA Fall on same level from slipping, tripping and stumbling without subsequent striking against object, initial encounter; Y93.89 Activity, other specified; Y92.89 Other specified places as the place of occurrence of the external cause; Y99.8 Other external cause status
CPT/HCPCS: 99283

== ENCOUNTER 2019-08-01 11:45 | Emergency (ER) | payer MEDICARE, MEDICAID ==
[~2019-08-01] VITALS: Ht 190.5 cm; Wt 114.9 kg
[2019-08-01 11:59] VITALS: BP 130/92
--- NOTE | 2019-08-01 12:22 | NUR ---
REPORT FROM VITALIY RN, PT TO XRAY
== END 2019-08-01 12:54 | disposition home or self-care (01) ==
LOC: ED 12:50
DX: S80.02XA Contusion of left knee, initial encounter (principal); G89.29 Other chronic pain; I10 Essential (primary) hypertension; E11.9 Type 2 diabetes mellitus without complications; J43.9 Emphysema, unspecified; F32.9 Major depressive disorder, single episode, unspecified; F43.10 Post-traumatic stress disorder, unspecified; E78.00 Pure hypercholesterolemia, unspecified; F41.9 Anxiety disorder, unspecified; X58.XXXA Exposure to other specified factors, initial encounter; Y93.89 Activity, other specified; Y92.89 Other specified places as the place of occurrence of the external cause; Y99.8 Other external cause status
CPT/HCPCS: 99283

== ENCOUNTER 2021-01-06 07:19 | Emergency (ER) | payer MEDICARE, MEDICAID ==
[~2021-01-06] VITALS: Ht 190.5 cm; Wt 137.1 kg
[~2021-01-06 07:19] MED LIST changes: -OXYC-307 PO; +OXYC-380 PO; -OXYC15TA PO; +OXYC15TA3 PO
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
[2021-01-06] MEDS ORDERED: OXYcodone/APAP 10/325MG TABLET PO ONE (08:30)
[2021-01-06] MEDS ORDERED: OXYcodone/APAP 10/325MG TABLET ONE (08:49)
--- NOTE | 2021-01-06 08:53 | NUR ---
BREAK RN: [place], MEDICATED PER EMAR. AT BS. CALL LIGHT WITHIN REACH. NO NEEDS AT THIS TIME
[2021-01-06 10:11] VITALS: BP 149/80
== END 2021-01-06 10:17 | disposition home or self-care (01) ==
LOC: ED 09:44
DX: S40.012A Contusion of left shoulder, initial encounter (principal); S50.02XA Contusion of left elbow, initial encounter; S50.12XA Contusion of left forearm, initial encounter; M25.512 Pain in left shoulder; I10 Essential (primary) hypertension; E11.9 Type 2 diabetes mellitus without complications; E78.00 Pure hypercholesterolemia, unspecified; J43.9 Emphysema, unspecified; G89.29 Other chronic pain; F17.200 Nicotine dependence, unspecified, uncomplicated; X58.XXXA Exposure to other specified factors, initial encounter; Y93.89 Activity, other specified; Y92.89 Other specified places as the place of occurrence of the external cause; Y99.8 Other external cause status
CPT/HCPCS: 99284